=== PATIENT | female | born 1975 | race Caucasian/White ===

== ENCOUNTER 2016-06-18 13:32 | Emergency (ER) | payer SELFPAY ==
[2016-06-18 18:23] VITALS: BP 150/87
== END 2016-06-18 18:23 | disposition home or self-care (01) ==
LOC: ED 13:32
DX: G43.909 Migraine, unspecified, not intractable, without status migrainosus (principal); E66.01 Morbid (severe) obesity due to excess calories; Z88.1 Allergy status to other antibiotic agents; Z88.8 Allergy status to other drugs, medicaments and biological substances
CPT/HCPCS: J2270; J2550

== ENCOUNTER 2016-07-20 23:04 | Emergency (ER) | payer SELFPAY ==
[2016-07-21 01:36] VITALS: BP 147/71
== END 2016-07-21 01:36 | disposition home or self-care (01) ==
LOC: ED 23:04
DX: G43.909 Migraine, unspecified, not intractable, without status migrainosus (principal); R60.9 Edema, unspecified; Z88.8 Allergy status to other drugs, medicaments and biological substances; Z88.6 Allergy status to analgesic agent
CPT/HCPCS: J2270; J2550

== ENCOUNTER 2016-08-09 11:15 | Emergency (ER) | payer SELFPAY ==
[2016-08-09 11:39] VITALS: BP 152/93
== END 2016-08-09 12:41 | disposition left against medical advice (07) ==
LOC: ED 11:15
DX: G43.909 Migraine, unspecified, not intractable, without status migrainosus (principal); E66.9 Obesity, unspecified; Z88.8 Allergy status to other drugs, medicaments and biological substances